=== PATIENT | male | born 1955 | race Two or more races ===

== ENCOUNTER 2017-01-26 13:16 | Emergency (ER) | payer OTHER ==
[~2017-01-26] VITALS: Ht 165.1 cm; Wt 72.6 kg
[2017-01-26] MEDS ORDERED: IV NS 0.9% 1,000 ML BAG IV ONE (13:30)
[2017-01-26] MEDS ORDERED: ONDANSETRON HCL/PF 4 MG/2 ML VIAL IVP ONE (13:30)
[2017-01-26] MEDS ORDERED: MORPHINE SULFATE INJ 2 MG/ML DISP.SYRIN IV ONE (13:30)
[2017-01-26 13:43] LABS: BASOPHILS # (AUTO) 0.1 /CMM (0.0-0.2); BASOPHILS % (AUTO) 0.7 % (0.0-2.0); EOSINOPHILS # (AUTO) 0.1 /CMM (0.0-0.7); EOSINOPHILS % (AUTO) 1.1 % (0.0-6.0); HEMATOCRIT 47 % (39-51); HEMOGLOBIN 16.1 g/dL (13.5-17.5); LYMPHOCYTES # (AUTO) 3.4 /CMM (0.8-4.8); MEAN CORPUSCULAR HEMOGLOBIN 31 PG (26.0-33.0); MEAN CORPUSCULAR HGB CONC 34 g/dl (31.0-36.0); MEAN CORPUSCULAR VOLUME 91 fL (80-96); MONOCYTES # (AUTO) 0.6 /CMM (0.1-1.30); MONOCYTES % (AUTO) 5.7 % (2.0-12.0); NEUTROPHILS % (AUTO) 59.5 % (43.0-81.0); PLATELET COUNT (AUTO) 269 /CMM (150-450); RDW COEFFICIENT OF VARIATION 13.3 (11.5-15.0); RED BLOOD CELL COUNT(AUTO) 5.13 MIL/uL (4.5-6.0); WHITE BLOOD COUNT (AUTO) 10.2 K/uL (4.3-11.0)
--- NOTE | 2017-01-26 13:48 | NUR ---
PT TAKEN TO CT
[2017-01-26] MEDS ORDERED: MORPHINE SULFATE INJ 4 MG/ML DISP.SYRIN ONE (13:50)
[2017-01-26] MEDS ORDERED: IV NS 0.9% 1,000 ML ONE (13:50)
[2017-01-26] MEDS ORDERED: ONDANSETRON HCL/PF 4 MG/2 ML VIAL ONE (13:50)
[2017-01-26] MEDS ORDERED: IV SET PRIMARY PUMP SET 1 EA INFUS.SET MC ONE (13:50)
[2017-01-26 13:52] LABS: CALCIUM, SERUM 8.9 mg/dL (8.5-10.1); CREATININE 1.2 mg/dL (0.6-1.3); POTASSIUM 3.3 mmol/L (3.5-5.1)
[2017-01-26 13:58] LABS: ALBUMIN 4.2 g/dL (3.4-5.0); BILIRUBIN,DIRECT 0.1 mg/dL (0.0-0.2); BILIRUBIN,TOTAL 0.3 mg/dL (0.2-1.0); TOTAL PROTEIN, SERUM 8.6 g/dL (6.4-8.2)
[2017-01-26 15:05] LABS: APPEARANCE,URINE Clear (CLEAR); BILIRUBIN,URINE Negative (NEGATIVE); BLOOD, URINE Negative Ery/uL (NEGATIVE); COLOR,URINE Yellow (YELLOW); KETONES,URINE Negative (NEGATIVE); LEUKOCYTE ESTERASE ,URINE Negative (NEGATIVE); NITRITE, URINE Negative (NEGATIVE); PROTEIN,URINE Negative (NEGATIVE); UGLUCOSE Negative (NEGATIVE); UROBILINOGEN,URINE 0.2 EU/dL (0.2)
--- NOTE | 2017-01-26 15:39 | NUR ---
IV removed. Catheter intact and site benign. Pressure and 4x4 applied to site. No bleeding noted.Patient discharged to home in stable condition. Written and verbal after care instructions given. Patient verbalizes understanding of instruction.
[2017-01-26 15:40] VITALS: BP 140/80
== END 2017-01-26 15:41 | disposition home or self-care (01) ==
LOC: ER 13:18
DX: R10.84 Generalized abdominal pain (principal); M54.9 Dorsalgia, unspecified; G89.29 Other chronic pain
CPT/HCPCS: 36415; 80048-TC; 80076-TC; 81000-TC; 83690-TC; 84484-TC; 85025-TC; A4606; J2270; J2405; J7030; Z7610

== ENCOUNTER 2017-02-12 19:41 | Inpatient (IN) | payer OTHER ==
[~2017-02-12] VITALS: Ht 162.6 cm; Wt 71.7 kg
--- NOTE | 2017-02-12 20:00 | NUR ---
PT PRESENTED TO THE ER WITH A C/O N/V AND GENERALIZED ABD PAIN. EPIGASTRIC PAIN WITH PALPATION. PT IS SYRIAC SPEAKING ONLY. PT IS GUARDING HIS STOMACH, DIAPHORETIC, AND MOANING. PT STATED PAIN IS 10/10. PT IS ON THE MONITOR AND CONTINOUS PULSE OX.
[2017-02-12] MEDS ORDERED: IV NS 0.9% 1,000 ML ONE ×2 (20:04→21:39)
[2017-02-12] MEDS ORDERED: IV SET PRIMARY 1 EA INFUS.SET MC ONE ×2 (20:04→21:39)
[2017-02-12] MEDS ORDERED: ONDANSETRON HCL/PF 4 MG/2 ML VIAL ONE (20:04)
[2017-02-12] MEDS ORDERED: MORPHINE SULFATE INJ 4 MG/ML DISP.SYRIN ONE (20:04)
[2017-02-12 20:09] LABS: BASOPHILS # (AUTO) 0.1 /CMM (0.0-0.2); BASOPHILS % (AUTO) 0.4 % (0.0-2.0); EOSINOPHILS # (AUTO) 0.1 /CMM (0.0-0.7); EOSINOPHILS % (AUTO) 1.1 % (0.0-6.0); HEMATOCRIT 45 % (39-51); LYMPHOCYTES # (AUTO) 3.4 /CMM (0.8-4.8); LYMPHOCYTES % (AUTO) 27.1 % (20.0-44.0); MEAN CORPUSCULAR HEMOGLOBIN 31 PG (26.0-33.0); MEAN CORPUSCULAR HGB CONC 34 g/dl (31.0-36.0); MEAN CORPUSCULAR VOLUME 91 fL (80-96); MONOCYTES # (AUTO) 1.1 /CMM (0.1-1.30); MONOCYTES % (AUTO) 8.4 % (2.0-12.0); PLATELET COUNT (AUTO) 272 /CMM (150-450); RDW COEFFICIENT OF VARIATION 13.6 (11.5-15.0); RED BLOOD CELL COUNT(AUTO) 4.92 MIL/uL (4.5-6.0); WHITE BLOOD COUNT (AUTO) 12.7 K/uL (4.3-11.0)
[2017-02-12 20:19] LABS: CALCIUM, SERUM 8.8 mg/dL (8.5-10.1); CREATININE 1.1 mg/dL (0.6-1.3); POTASSIUM 3.6 mmol/L (3.5-5.1)
--- NOTE | 2017-02-12 20:19 | NUR ---
PT LEFT FOR CT VIA RNEY
[2017-02-12 20:23] LABS: INR 0.95 (0.87-1.13); PROTHROMBIN TIME 9.9 SECS (9.5-12.7)
[2017-02-12 20:26] LABS: ALBUMIN 3.8 g/dL (3.4-5.0); BILIRUBIN,DIRECT 1.7 mg/dL (0.0-0.2); BILIRUBIN,TOTAL 2.3 mg/dL (0.2-1.0); TOTAL PROTEIN, SERUM 7.9 g/dL (6.4-8.2)
[2017-02-12] MEDS ORDERED: ONDANSETRON HCL/PF 4 MG/2 ML VIAL IV ONE (20:30)
[2017-02-12] MEDS ORDERED: MORPHINE SULFATE INJ 2 MG/ML DISP.SYRIN IV ONE (20:30)
[2017-02-12] MEDS ORDERED: IV NS 0.9% 1,000 ML BAG IV ONE ×2 (20:30→21:30)
[2017-02-12] MEDS ORDERED: HYDROMORPHONE 1 MG/1 ML DISP.SYRIN ONE (20:37)
[2017-02-12] MEDS ORDERED: HYDROMORPHONE 1 MG/1 ML DISP.SYRIN IV ONE (21:00)
--- NOTE | 2017-02-12 21:11 | NUR ---
WILIAM PAGED, ROC[employer]O WEBSTER STRUCTURAL MILL SUPERVISOR, PAGED TO CALL BACK
--- NOTE | 2017-02-12 21:17 | NUR ---
CALLED NURSING SUP. FOR MS BED
[2017-02-12] MEDS ORDERED: MEROPENEM 500 MG in IV NS 0.9% 50 ML IV ONE (21:30)
[2017-02-12] MEDS ORDERED: MEROPENEM 500 MG VIAL IV ONE (21:39)
[2017-02-12] MEDS ORDERED: IV NS 0.9% 50 ML IV ONE (21:39)
--- NOTE | 2017-02-12 21:58 | NUR ---
CALLED REPORT TO MS ROD
[2017-02-12 22:00] VITALS: BP 136/79
--- NOTE | 2017-02-12 22:15 | NUR ---
MS/RN NOTES PATIENT RECEIVED FORM ER IS A 61 Y.O /TRISTANIAN SPEAKING MALE WHO WAS ADMITTED FOR ABDOMINAL PAIN W/DIAGNOSIS OF PANCREATITIS. PATIENT W/ HISTORY OF CHRONIC BACK PAIN AND WAS RECENTLY ADMITTED DUE TO ABDOMINAL PAIN. ALERT, ORIENTED, CAN SPEAK LITTLE HUNGARIAN BUT PREFER TO SPEAK IN TRISTANIAN, REQUIRE ASSISTANCE BUT CONTINENT AND USES URIINAL, ON NPO WITH IV ON RIGHT AC G18 . B/P 136/79, P 83, TEMP 98 AND ON 2 LITER VIA NC 95%. RECONCILE MEDS. WILL FOLLOW UP FOR ANY CHANGE IN CONDITION . PATIENT REFUSED TO HAVE SKIN CHECK AT THIS TIME.
[2017-02-12] MEDS ORDERED: TRAM50TA2 PO (22:20)
--- NOTE | 2017-02-12 23:00 | NUR ---
MS/RN NOTES BELONGINGS CHECKED. HOME MEDICATION FOUIND ON PATIENT BELONGING, INFORMED CHARGE NURSE FOR SAFE STORAGE. TO ENDORSE
[2017-02-12] MEDS ORDERED: IV NS 0.9% 1,000 ML IV PRN (23:05)
[2017-02-12 23:18] VITALS: BP 136/79
[2017-02-12] MEDS ORDERED: HYDROCODONE/APAP 5/325MG 1 EACH TABLET PO PRN (23:30)
[2017-02-12] MEDS ORDERED: ZOLPIDEM TARTRATE 5 MG TABLET PO PRN (23:30)
[2017-02-12] MEDS ORDERED: Z GUARD REMEDY 2 OZ OINT TP PRN (23:30)
[2017-02-12] MEDS ORDERED: MAG HYDROX/AL HYDROX/SIMETH 30 ML UDC PO PRN (23:30)
[2017-02-12] MEDS ORDERED: ACETAMINOPHEN 325 MG TABLET PO PRN (23:30)
[2017-02-12] MEDS ORDERED: MAGNESIUM HYDROXIDE 30 ML UDC PO PRN (23:30)
[2017-02-12] MEDS ORDERED: ONDANSETRON HCL/PF 4 MG/2 ML VIAL IVP PRN (23:30)
[2017-02-12] MEDS ORDERED: MEROPENEM 500 MG in IV NS 0.9% 50 ML IV SCH (23:30)
[2017-02-13] MEDS ORDERED: HYDROMORPHONE INJ 2 MG/ML DISP.SYRIN ONE ×2 (00:34→05:41)
[2017-02-13] MEDS: HYDROMORPHONE INJ 2 MG/ML DISP.SYRIN IV PRN ×6 (00:41→23:37)
[2017-02-13] MEDS ORDERED: MEROPENEM 500 MG VIAL IV ONE (00:55)
[2017-02-13] MEDS ORDERED: IV NS 0.9% 1,000 ML ONE (01:12)
[2017-02-13] MEDS ORDERED: IV SET PRIMARY PUMP SET 1 EA INFUS.SET MC ONE ×2 (01:12→15:41)
[2017-02-13] MEDS ORDERED: IV NS 0.9% 50 ML IV ONE (01:13)
[2017-02-13] MEDS ORDERED: SECONDARY IV SET 1 EA INFUS.SET MC ONE ×2 (01:13→13:01)
--- NOTE | 2017-02-13 03:10 | NUR ---
MS/RN NOTES PATIENT REPORTED CHEST PAIN OF 01/21. B/P TAKEN 152/88, PULSW88, O2 SAT WITH 2L VIA NC AT 97% TEMP AT 97.6. REPORTED TO CHARGE NURSE AND TO OBSERVE TELE MONITOR AT SR 82. ORDER FOR SUBLINGUAL NITRO04 ONE TIME ONLY AND EKG AND TROPONIN LEVEL.. WILL CARRY OUT ORDER.
[2017-02-13] MEDS ORDERED: NITROGLYCERIN 0.4 MG/TAB BOTTLE ONE (03:22)
[2017-02-13] MEDS ORDERED: NITROGLYCERIN 0.4 MG/TAB BOTTLE SL ONE (03:30)
--- NOTE | 2017-02-13 03:38 | NUR ---
MS/RN NOTES PATIENT EKG DONE WITH NORMAL SINUS RHYTHM. PATIENT GIVEN NITRO SUB LINGUAL 0330 WITH PAIN LEVEL CHEST 5/10, RECEHCK PAIN AT 0335 AND CHEST PAIN STILL AT 5/10 AFTER GIVING 2ND VINITA SL B/P AT 147/88 O2 SAT 94%. RECEHECK PAIN AND GIVE LAST DOSE NIRO SL AND CHECK CHEST PAIN LEVEL.
--- NOTE | 2017-02-13 03:57 | NUR ---
MS/RN NOTES PATIENT REPORTED PAIN 4/10 AND LESS DISCOMFORT
[2017-02-13 04:49] VITALS: BP_SYST 125; BP_SYST 152; BP_DIAS 77; BP_DIAS 88
--- NOTE | 2017-02-13 05:52 | NUR ---
MS/RN NOTES PATIENT REPORTED SEVERE PAIN 9/10 IN ABDOMEN WILL PROVIDE MEDICATION DILAUDID IM IV AND MONITOR PAIN EFFECTIVENESS.
[2017-02-13 06:42] LABS: EOSINOPHILS # (AUTO) 0.1 /CMM (0.0-0.7); EOSINOPHILS % (AUTO) 0.5 % (0.0-6.0); HEMATOCRIT 40 % (39-51); HEMOGLOBIN 13.1 g/dL (13.5-17.5); LYMPHOCYTES # (AUTO) 0.5 /CMM (0.8-4.8); LYMPHOCYTES % (AUTO) 4.5 % (20.0-44.0); MEAN CORPUSCULAR HEMOGLOBIN 30 PG (26.0-33.0); MEAN CORPUSCULAR HGB CONC 33 g/dl (31.0-36.0); MEAN CORPUSCULAR VOLUME 92 fL (80-96); MONOCYTES # (AUTO) 0.5 /CMM (0.1-1.30); MONOCYTES % (AUTO) 4.3 % (2.0-12.0); NEUTROPHILS # (AUTO) 10.8 /CMM (1.8-8.9); NEUTROPHILS % (AUTO) 90.7 % (43.0-81.0); PLATELET COUNT (AUTO) 243 /CMM (150-450); RDW COEFFICIENT OF VARIATION 14.5 (11.5-15.0); RED BLOOD CELL COUNT(AUTO) 4.33 MIL/uL (4.5-6.0); WHITE BLOOD COUNT (AUTO) 11.9 K/uL (4.3-11.0)
--- NOTE | 2017-02-13 06:50 | NUR ---
MS/RN NOTES PATIENT ABLE TO SLEEP AND VERBALIZED PAIN RELIEF. CALM AND WILL CONTINUE TO MONITOR AND ENDORSE TO AM RN.
[2017-02-13 07:13] LABS: ALBUMIN 3.2 g/dL (3.4-5.0); BILIRUBIN,TOTAL 2.7 mg/dL (0.2-1.0); CALCIUM, SERUM 7.5 mg/dL (8.5-10.1); CREATININE 0.9 mg/dL (0.6-1.3); MAGNESIUM 1.7 mg/dL (1.8-2.4); PHOSPHORUS 4.1 mg/dL (2.5-4.9); TOTAL PROTEIN, SERUM 6.7 g/dL (6.4-8.2)
[2017-02-13 07:14] VITALS: BP 130/83
[2017-02-13 07:16] LABS: FREE PSA 0.63 ng/mL (0.00-45); PROSTATE SPECIFIC ANTIGEN SCR 4.71 ng/mL (0.00-4.00)
--- NOTE | 2017-02-13 07:50 | NUR ---
MS RN OPENING NOTE PATIENT IS ASLEEP IN BED LOCKED IN LOWEST POSITION. CALL LIGHT WITHIN REACH. SAFETY MEASURES IMPLEMENTED. IV INTACT AND PATENT NO REDNESS OR SWELLING NOTED. NO PAIN AT THIS TIME. NO SOB OR DISTRESS NOTED. CURRENTLY NPO AT THIS TIME. WILL CONTINUE TO MONTIOR
[2017-02-13 08:00] VITALS: BP 147/84
[2017-02-13 08:57] LABS: THYROID STIMULATING HORMONE 0.41 uIU/mL (0.358-3.74)
[2017-02-13] MEDS: PANTOPRAZOLE 40 MG VIAL IV SCH (09:22)
[2017-02-13] MEDS: MEROPENEM 500 MG in IV NS 0.9% 50 ML IV SCH ×2 (12:00→21:31)
[2017-02-13] MEDS: Magnesium 1GM/D5W 100ML PREMIX 100 ML IV SCH ×2 (13:13→15:21)
--- NOTE | 2017-02-13 15:02 | NUR ---
MS RN NOTE PATIENT IS TO HAVE GI CONSULT WITH DR. RODRIGES PER DR. DA SILVA REQUEST. PAGED GI DOCTOR TO MAKE AWARE
[2017-02-13 16:00] VITALS: BP 141/83
[2017-02-13] MEDS: IV D5/ 0.9% NACL 1,000 ML IV PRN ×2 (16:25→23:43)
--- NOTE | 2017-02-13 18:25 | NUR ---
MS RN CLOSING NOTE PATIENT IS ALERT AND ORIENTED x4. NO PAIN AT THIS TIME. NO SOB OR DISTRESS NOTED. IV INTACT AND PATENT NO REDNESS OR SWELLING. CALL LIGHT WITHIN REACH AT ALL TIMES. SAFETY MEASURES IMPLEMENTED. ABLE TO COMMUNICATE NEEDS. [place] SPEAKING. WAITING FOR GI CONSULT BY DR. ZAHIRA MD AWARE. ON CLEAR LIQUIDS, TOLERATING WELL. WILL ENDORSE TO BUNDLE CUTTER NURSE FOR NAMITA
--- NOTE | 2017-02-13 19:00 | NUR ---
MS PHOTOGRAPHER APPRENTICE LITHOGRAPHIC INITIAL NOTES CHECKED PT AFTER GOT REPORT FROM NURSE , COMPLAINING OF ABDOMINAL PAIN BUT NO N/V NOTED. IVF STILL INFUSING ON HIS RIGHT AC D5NS AT 150ML/HR . DILAUDID ADMINISTERED BY AM NURSE FRO PT COMFORT. KEPT HIM WARM AND COMFORTABLE AT ALL TIMES . SAFETY PRECAUTION IMPLEMENTED FOR SAFETY.WILL CONTINUE TO MONITOR. PLACE CALL LIGHT AT REACH.
[2017-02-13 20:00] VITALS: BP 130/68
--- NOTE | 2017-02-13 22:10 | NUR ---
DERMATOLOGY NURSE /NOTES PT WOKE UP AND COMPLAINING OF ABDOMINAL PAIN BUT PAIN SHOT NOT DUE YET, OFFERED MAALOX AND HE SAID "OK". DRINK IT AND TOLERATED WELL . NO ASPIRATION NOTED. WILL CONTINUE TO MONITOR.
[2017-02-14] MEDS: MEROPENEM 500 MG in IV NS 0.9% 50 ML IV SCH ×3 (05:17→21:00)
[2017-02-14] MEDS: HYDROMORPHONE INJ 2 MG/ML DISP.SYRIN IV PRN ×4 (05:19→22:17)
--- NOTE | 2017-02-14 05:20 | NUR ---
RN NOTES: DILAUDID 1 MG IV IS GIVEN PRESCRIBED.
--- NOTE | 2017-02-14 07:04 | NUR ---
MS SPORTS MEDICINE MASSEUR CLOSING NOTES PT RESTING COMFORTABLY IN BED AFTER PAIN MEDS GIVEN. IVF STILL INFUSING ON HIS RIGHT AC PATENT AND INTACT. ALL DUE MEDS GIVEN AND ALL NEEDS MET. PAIN NOTICED ON AND OFF BUT NO N/V NOTED. KEPT HIM COMFORTABLE AT ALL TIMES. WILL ENDORSE TO AM NURSE FOR CONTINUITY OF CARE. PLACE CALL LIGHT AT REACH.
[2017-02-14 07:27] LABS: ALBUMIN 2.7 g/dL (3.4-5.0); BILIRUBIN,DIRECT 2.2 mg/dL (0.0-0.2); BILIRUBIN,TOTAL 3.4 mg/dL (0.2-1.0); CALCIUM, SERUM 7.6 mg/dL (8.5-10.1); CREATININE 0.8 mg/dL (0.6-1.3); MAGNESIUM 2.1 mg/dL (1.8-2.4); POTASSIUM 3.7 mmol/L (3.5-5.1); TOTAL PROTEIN, SERUM 6.5 g/dL (6.4-8.2)
--- NOTE | 2017-02-14 07:48 | NUR ---
MS RN OPENING NOTE PATIENT IS ASLEEP IN BED EASILY AROUSABLE. NO PAIN AT THIS TIME. NO SOB OR DISTRESS NOTED. IV INTACT AND PATENT NO REDNESS OR SWELLING. ABLE TO COMMUNICATE NEEDS. CALL LIGHT WITHIN REACH. SAFETY MEASURES IMPLEMENTED. AWAITING FOR GI CONSULT. WILL ENDORSE TO GYROSCOPE TECHNICIAN Addendum: 02/14/17 at 0753 by BREANNA BLACKWOOD RN WILL CONTINUE TO MONITOR
[2017-02-14 08:00] VITALS: BP 147/69
[2017-02-14] MEDS: PANTOPRAZOLE 40 MG VIAL IV SCH (08:28)
--- NOTE | 2017-02-14 12:26 | NUR ---
MS RN NOTE OBTAINED INFORMED CONSENT FOR ERCP PROCEDURE. WILL ENDORSE TO SOFTWARE QUALITY ASSURANCE ANALYST NURSE
[2017-02-14 16:00] VITALS: BP 136/71
--- NOTE | 2017-02-14 18:43 | NUR ---
MS RN CLOSING NOTE PATIENT IS AWAKE IN BED. CALL LIGHT WITHIN REACH AT ALL TIMES. ABLE TO COMMUNICATE NEEDS. SAFETY MEASURES IMPLEMENTED. IV INTACT AND PATENT. NO SIGNIFICANT CHANGES THROUGHOUT SHIFT. INFORMED CONSENT OBTAINED FOR ERCP PROCEDURE TOMORROW. NPO AFTER MIDNIGHT EXCEPT MEDICATIONS. WILL ENDORSE TO SIDE LASTER STAPLE NURSE
[2017-02-14 20:00] VITALS: BP 149/79
--- NOTE | 2017-02-14 20:00 | NUR ---
MS MARY INITIAL NOTES SEEN PT IN BED AWAKE AND ALERT WATCHING TV AT THIS TIME NOT IN ANY ACUTE DISCOMFORT HE STATED ONLY FEEL HOT THE ROOM , REGULATE THE TEMP FOR PT COMFORT. IVF STILL INFUSING, NEW BAG HUNG AT THIS TIME. PT AWARE OF HIS PROCEDURE [place]. NPO AFTER MIDNIGHT EXCEPT MEDS. KEPT HIM WARM AND COMFORTABLE AT ALL TIMES. WILL CONTINUE TO MONITOR. PLACE CALL LIGHT AT REACH.
[2017-02-14] MEDS: IV D5/ 0.9% NACL 1,000 ML IV PRN (20:30)
[2017-02-14 20:44] VITALS: BP 146/79
[2017-02-14] MEDS ORDERED: LATANOPROST EYE DROP 0.005% 2.5 ML BOTTLE ONE (21:54)
--- NOTE | 2017-02-14 22:25 | NUR ---
ms/rn notes Patient complained of Abdominal pain. 8/10 level of pain. Medicated with Dilaudid 1 mg ivp as ordered. Will cont. to monitor.
[2017-02-15] VITALS (9 sets, daily range): BP systolic 93–136; BP diastolic 59–77
[2017-02-15] MEDS: HYDROMORPHONE INJ 2 MG/ML DISP.SYRIN IV PRN ×2 (03:29→08:43)
--- NOTE | 2017-02-15 03:31 | NUR ---
ms/rn notes Patient complained of Abdominal pain. 910 level of pain. Medicated with Dilaudid 1 mg ivp as ordered. Will cont. to monitor.
[2017-02-15] MEDS: IV D5/ 0.9% NACL 1,000 ML IV PRN ×2 (05:30→14:48)
[2017-02-15] MEDS: MEROPENEM 500 MG in IV NS 0.9% 50 ML IV SCH (06:15)
--- NOTE | 2017-02-15 07:29 | NUR ---
MS SPLICING MACHINE OPERATOR AUTOMATIC CLOSING NOTES PT RESTING COMFORTABLY IN BED WITHOUT ANY ACUTE DISTRESS AND DISCOMFORT NOTED. IVF REMAIN INFUSING. ALL DUE MEDS GIVEN AND ALL NEEDS MET. STABLE EMILEE THE NIGHT EXCEPT THE PAIN BUT RELIEVED BY HIS DILAUDID. KEPT HIM COMFORTABLE AT ALL TIMES. ENDORSE TO AM NURSE VASQUEZ FOR CONTINUITY OF CARE. PLACE CALL LIGHT AT REACH.
--- NOTE | 2017-02-15 07:30 | NUR ---
m/s braille translator: initial assessment received pt in bed asleep, but arousable. npo status due to ercp and medical diagnosis. no s/s of discomfort. call light within reach. will continue to monitor.
[2017-02-15 07:34] LABS: EOSINOPHILS % (AUTO) 0.1 % (0.0-6.0); HEMATOCRIT 39 % (39-51); HEMOGLOBIN 12.9 g/dL (13.5-17.5); LYMPHOCYTES # (AUTO) 1.3 /CMM (0.8-4.8); MEAN CORPUSCULAR HEMOGLOBIN 31 PG (26.0-33.0); MEAN CORPUSCULAR HGB CONC 33 g/dl (31.0-36.0); MEAN CORPUSCULAR VOLUME 91 fL (80-96); MONOCYTES # (AUTO) 0.8 /CMM (0.1-1.30); MONOCYTES % (AUTO) 4.9 % (2.0-12.0); NEUTROPHILS # (AUTO) 14.1 /CMM (1.8-8.9); PLATELET COUNT (AUTO) 218 /CMM (150-450); RDW COEFFICIENT OF VARIATION 14.4 (11.5-15.0); RED BLOOD CELL COUNT(AUTO) 4.25 MIL/uL (4.5-6.0); WHITE BLOOD COUNT (AUTO) 16.3 K/uL (4.3-11.0)
[2017-02-15 08:02] LABS: CALCIUM, SERUM 7.8 mg/dL (8.5-10.1); CREATININE 0.8 mg/dL (0.6-1.3); POTASSIUM 3.6 mmol/L (3.5-5.1)
[2017-02-15] MEDS: PANTOPRAZOLE 40 MG VIAL IV SCH (08:29)
--- NOTE | 2017-02-15 08:43 | NUR ---
m/s drafter topographical: notes c/o 04/22 left lower abdomen. medicated with dilaudid 1mg ivp by rn. instructed to call for assistance. remains npo. will continue to monitor.
--- NOTE | 2017-02-15 09:13 | NUR ---
m/s principal strategist: notes pt in bed with eyes close. no s/s of resp. distress noted. call light within reach. will monitor.
--- NOTE | 2017-02-15 11:00 | NUR ---
m/s electric switch repairer: notes pt resting comfortable. remains npo. continue on ivf, infusing well. for ercp this afternoon. family visiting at this time. instructed to call for assistance. will monitor.
--- NOTE | 2017-02-15 12:00 | NUR ---
m/s hand i tube bender: notes resting comfortable in bed. 3 visitors at bedside. call light within reach. will monitor.
[2017-02-15] MEDS ORDERED: IOHEXOL 100 ML IV ONE (12:22)
--- NOTE | 2017-02-15 12:30 | NUR ---
m/s senior db2 systems programmer: notes taken to o.r. via bed at this time. son at bedside. will continue to monitor.
[2017-02-15] MEDS ORDERED: FENTANYL PF 100MCG/2ML AMPUL ONE (13:02)
[2017-02-15] MEDS ORDERED: ROCURONIUM BROMIDE 50 MG/5 ML ONE (13:03)
[2017-02-15] MEDS ORDERED: MIDAZOLAM HCL 2 MG/2ML VIAL ONE (13:03)
[2017-02-15] MEDS ORDERED: SUCCINYLCHOLINE CHLORIDE 20 MG/ML VIAL ONE (13:03)
--- NOTE | 2017-02-15 14:40 | NUR ---
m/s tv news director: notes received pt from recovery room via bed with dx: s/p ercp. pt dozing on and off at this time, but verbally responsive. denies any pain or n/v at this time. ordered soft diet and may advance diet as tolerated. report given by greyson (rn) and stones was removed as stated. son at bedside. instructed to call for assistance. will continue to monitor.
[2017-02-15] MEDS: MEROPENEM 1 G in IV NS 0.9% 100 ML IV SCH ×2 (14:54→21:20)
--- NOTE | 2017-02-15 15:40 | NUR ---
m/s chucking and sawing machine operator: notes pt sounds asleep at this time. son at remains at bedside. call light within reach. will continue to monitor.
--- NOTE | 2017-02-15 17:20 | NUR ---
m/s cloth bolt bander: notes dinner served. pt more awake, but still sleepy. needs attended. no c/o pain, n/v at this time. instructed to call for assistance. in no apparent distress noted. will continue to monitor.
--- NOTE | 2017-02-15 19:05 | NUR ---
RN NOTE RECEIVED REPORT. NO DISTRESS NOTED, DENIES PAIN/DISCOMFORT AT THIS TIME. HYPOACTIVE BOWEL SOUNDS AUSCULTATED IN EACH QUADRANT. ENCOURAGED PT TO AMBULATE. CALL LIGHT IN REACH, IV INTACT AND PATENT. WILL CONT TO MONITOR.
[2017-02-16] MEDS: MEROPENEM 1 G in IV NS 0.9% 100 ML IV SCH ×3 (04:04→21:08)
--- NOTE | 2017-02-16 06:25 | NUR ---
RN NOTE PT SLEPT WELL AT NIGHT. NO C/O PAIN OR DISCOMFORT AT THIS TIME. BREATHING NON-LABORED AND EVEN. IV INTACT AND PATENT. ALL NEEDS ATTENDED TO, WILL F/U WITH DAY SHIFT FOR NAMITA.
--- NOTE | 2017-02-16 07:15 | NUR ---
RN MS NOTES PATIENT IN BED ALERT AND ORIENTED, NO COMPLAINT OF PAIN OR DISCOMFORT, NEEDS ATTENDED AND MET, SAFETY MEASURES IN PLACED, CALL LIGHT PLACED WITHIN REACH REACH, WILL CONTINUE TO MONITOR.
[2017-02-16 07:39] LABS: HEMATOCRIT 39 % (39-51); LYMPHOCYTES # (AUTO) 0.9 /CMM (0.8-4.8); LYMPHOCYTES % (AUTO) 6.7 % (20.0-44.0); MEAN CORPUSCULAR HEMOGLOBIN 31 PG (26.0-33.0); MEAN CORPUSCULAR HGB CONC 34 g/dl (31.0-36.0); MEAN CORPUSCULAR VOLUME 91 fL (80-96); MONOCYTES # (AUTO) 0.7 /CMM (0.1-1.30); NEUTROPHILS # (AUTO) 12.2 /CMM (1.8-8.9); NEUTROPHILS % (AUTO) 88.3 % (43.0-81.0); PLATELET COUNT (AUTO) 265 /CMM (150-450); RDW COEFFICIENT OF VARIATION 14.7 (11.5-15.0); RED BLOOD CELL COUNT(AUTO) 4.24 MIL/uL (4.5-6.0); WHITE BLOOD COUNT (AUTO) 13.8 K/uL (4.3-11.0)
[2017-02-16 07:56] LABS: CALCIUM, SERUM 8.2 mg/dL (8.5-10.1); CREATININE 0.8 mg/dL (0.6-1.3); POTASSIUM 3.7 mmol/L (3.5-5.1)
[2017-02-16 08:00] VITALS: BP 121/69
[2017-02-16] MEDS: PANTOPRAZOLE 40 MG VIAL IV SCH (09:28)
[2017-02-16 15:45] VITALS: BP 148/110
--- NOTE | 2017-02-16 16:48 | NUR ---
RN MS NOTES PATIENT AMBULATES ON THE HALLWAY WITH STEADY GAIT, NO COMPLAINT OF PAIN AT THIS TIME. WILL CONTINUE TO MONITOR.
[2017-02-16] MEDS: IV D5/ 0.9% NACL 1,000 ML IV PRN (16:56)
--- NOTE | 2017-02-16 18:35 | NUR ---
RN MS NOTES PATIENT WITH NO SIGNIFICANT CHANGE THIS SHIFT, NO DISTRESS NOTED, DENIES PAIN AT THIS TIME, SEEN BY DR. ROMO THIS MORNING, STATED TO CONTINUE CURRENT MANAGEMENT, FAMILY AND FRIENDS AT BEDSIDE FOR SUPPORT, PIV ON RIGHT HAND NEWLY INSERTED, PATENT AND INTACT, AMBULATES TO RESTROOM, SAFETY MEASURES IN PLACED, CALL LIGHT WITHIN REACH, WILL ENDORSE TO DIRECTOR OF MARKETING AND PROMOTIONS FOR NAMITA.
--- NOTE | 2017-02-16 19:00 | NUR ---
MS RN OPENING NOTES RECEIVED PATIENT IN BED, AWAKE/O X 4, IV SITE INTACT WITH NO S/S OF INFILTRATION NOTED. NO S/S OF BLEEDING NOTED. NO S/S OF DISTRESS, NO CHEST PAIN IN STABLE CONDITION. KEPT CLEAN DRY AND COMFORTABLE. SAFE HAZARD FREE ENVIRONMENT PROVIDED. WILL CONTINUE TO MONITOR PATIENT.
[2017-02-16 20:00] VITALS: BP 148/84
[2017-02-16 20:56] VITALS: BP 148/84
[2017-02-17] MEDS: MEROPENEM 1 G in IV NS 0.9% 100 ML IV SCH (05:01)
[2017-02-17] MEDS: IV D5/ 0.9% NACL 1,000 ML IV PRN (05:01)
--- NOTE | 2017-02-17 06:33 | NUR ---
MS RN CLOSING NOTES IN BED ASLEEP AND EASILY AWAKEN, SEMI FOWLERS POSITION, ON ATB WITH NO A/R NOTED. SKIN WARM AND DRY TO TOUCH, AFEBRILE, ON IV D5 NS AT @ 100 ML/HR TOLERATED WELL. ALL NURSING CARE NEEDS PROVIDED AND RENDERED, NEEDS ATTENDED AND ANTICIPATED, KEPT CLEAN AND DRY AND COMFORTABLE, BLADDER NOT DISTENDED, CONTINUE WITH CURRENT MEDICATION ORDERED, NO LATE ADVERSE REACTION NOTED/REPORTED. COOPERATIVE TO HIS PLAN OF CARE. SAFE HAZARD FREE ENVIRONMENT MAINTAINED. ASSISTED REPOSITIONED EVERY 2 HOURS FOR SKIN MANAGEMENT AND COMFORT. GOOD SKIN CARE PROVIDED. ALL DUE MEDS WAS GIVEN. KEPT AT LOW BED. FREQUENT VISUAL CHECK FOR SAFETY. PLAN OF CARE ORDERED. CALL LIGHT ATTENDED PROMPTLY AND KEPT AT EASY REACH. WILL ENDORSE TO THE NEXT SHIFT CONTINUE PLAN OF CARE.
[2017-02-17 06:54] LABS: BASOPHILS % (AUTO) 0.1 % (0.0-2.0); EOSINOPHILS # (AUTO) 0.1 /CMM (0.0-0.7); EOSINOPHILS % (AUTO) 0.5 % (0.0-6.0); HEMATOCRIT 39 % (39-51); HEMOGLOBIN 12.9 g/dL (13.5-17.5); LYMPHOCYTES # (AUTO) 1.6 /CMM (0.8-4.8); LYMPHOCYTES % (AUTO) 11.5 % (20.0-44.0); MEAN CORPUSCULAR HEMOGLOBIN 30 PG (26.0-33.0); MEAN CORPUSCULAR HGB CONC 33 g/dl (31.0-36.0); MEAN CORPUSCULAR VOLUME 91 fL (80-96); MONOCYTES # (AUTO) 1.1 /CMM (0.1-1.30); MONOCYTES % (AUTO) 8.2 % (2.0-12.0); NEUTROPHILS # (AUTO) 10.9 /CMM (1.8-8.9); NEUTROPHILS % (AUTO) 79.7 % (43.0-81.0); PLATELET COUNT (AUTO) 280 /CMM (150-450); RDW COEFFICIENT OF VARIATION 14.2 (11.5-15.0); RED BLOOD CELL COUNT(AUTO) 4.29 MIL/uL (4.5-6.0); WHITE BLOOD COUNT (AUTO) 13.7 K/uL (4.3-11.0)
--- NOTE | 2017-02-17 07:10 | NUR ---
RN MS NOTES PATIENT IN BED, ALERT AND ORIENTED, DENIES PAIN OR DISCOMFORT, NO S/SX OF DISTRESS, NEEDS ATTENDED, WILL CONTINUE TO MONITOR.
[2017-02-17 07:19] LABS: ALBUMIN 2.3 g/dL (3.4-5.0); BILIRUBIN,TOTAL 0.8 mg/dL (0.2-1.0); CALCIUM, SERUM 7.4 mg/dL (8.5-10.1); CREATININE 0.9 mg/dL (0.6-1.3); POTASSIUM 3.2 mmol/L (3.5-5.1); TOTAL PROTEIN, SERUM 6.4 g/dL (6.4-8.2)
[2017-02-17 08:00] VITALS: BP 123/75
[2017-02-17] MEDS: PANTOPRAZOLE 40 MG VIAL IV SCH (09:20)
--- NOTE | 2017-02-17 11:15 | NUR ---
RN MS NOTES PATIENT RECEIVED DISCHARGE INSTRUCTIONS, VERBALIZED UNDERSTANDING, INFORMED PATIENT TO CONTINUE TRAMADOL AT HOME FOR PAIN, AND TO F/U WITH PCP AND GI DOCTORS. PATIENT DENIES PAIN OR DISCOMFORT, SKIN ASSESSMENT COMPLETED, PHOTOS TAKEN AND PLACED IN CHART, MEDICATION FROM PHARMACY GIVEN BACK TO THE PATIENT, SIGNED ALL DISCHARGE PAPERWORKS, REMOVE PIV AND SECURED WITH GAUZE AND TAPE, PATIENT LEFT THE FACILITY ACCOMPANIED BY A FRIEND VIA PRIVATE CARE, IN STABLE CONDITION.
[2017-02-17] MEDS ORDERED: POTASSIUM CHLORIDE 20 MEQ TAB.PRT.SR PO SCH (12:00)
== END 2017-02-17 11:15 | disposition home or self-care (01) ==
LOC: ER 19:44 → MED 21:52
PROVIDERS: ADMIT Contractor; ATTEND Contractor
PROC: 0FC98ZZ Extirpation of Matter from Common Bile Duct, Via Natural or Artificial Opening Endoscopic (ICD-10-PCS; principal; 2017-02-15 13:00)
DX: K80.50 Calculus of bile duct without cholangitis or cholecystitis without obstruction (principal); K85.10 Biliary acute pancreatitis without necrosis or infection; E88.09 Other disorders of plasma-protein metabolism, not elsewhere classified; E83.42 Hypomagnesemia; J98.11 Atelectasis; G89.29 Other chronic pain; N40.0 Benign prostatic hyperplasia without lower urinary tract symptoms; D72.829 Elevated white blood cell count, unspecified; Z87.891 Personal history of nicotine dependence; Z90.49 Acquired absence of other specified parts of digestive tract; R74.0 Nonspecific elevation of levels of transaminase and lactic acid dehydrogenase [LDH]
CPT/HCPCS: 36415; 71010-TC; 74000-TC; 80048-TC; 80053-TC; 80061-TC; 80076-TC; 82150-TC; 83690-TC; 83735-TC; 84100-TC; 84153-TC; 84154-TC; 84443-TC; 84484-TC; 85025-TC; 85730-TC; 94799-TC; A4216; A4606; C9113; J0330; J1170; J2185; J2250; J2270; J2405; J3010; J3475; J7030; J7042; Q9967; Z7610

== ENCOUNTER 2019-11-05 10:05 | Emergency (ER) | payer OTHER ==
[~2019-11-05] VITALS: Ht 165.1 cm; Wt 74.8 kg
[~2019-11-05 10:05] MED LIST: TRAM50TA2 PO
--- NOTE | 2019-11-05 10:15 | NUR ---
EPIGASTRIC PAIN X 8 DAYS, DENIES N/V/D. PATIENT A/OX4, BREATHING EVEN AND UNLABORED, NOS OB NOTED, NEEDS ATTENDED. KEPT COMFORTABLE.
[2019-11-05 10:37] LABS: BASOPHILS % (AUTO) 0.6 % (0.0-2.0); EOSINOPHILS % (AUTO) 3.1 % (0.0-6.0); HEMATOCRIT 41 % (39-51); HEMOGLOBIN 13.8 g/dL (13.5-17.5); LYMPHOCYTES # (AUTO) 1.8 /CMM (0.8-4.8); MEAN CORPUSCULAR HGB CONC 34 g/dl (31.0-36.0); MEAN CORPUSCULAR VOLUME 93 fL (80-96); MONOCYTES # (AUTO) 0.5 /CMM (0.1-1.30); MONOCYTES % (AUTO) 8.4 % (2.0-12.0); NEUTROPHILS # (AUTO) 3.5 /CMM (1.8-8.9); NEUTROPHILS % (AUTO) 57.9 % (43.0-81.0); PLATELET COUNT (AUTO) 241 /CMM (150-450); RED BLOOD CELL COUNT(AUTO) 4.42 MIL/uL (4.5-6.0); WHITE BLOOD COUNT (AUTO) 6.1 K/uL (4.3-11.0)
[2019-11-05 10:44] LABS: CALCIUM, SERUM 8.8 mg/dL (8.5-10.1); CREATININE 1.1 mg/dL (0.6-1.3); POTASSIUM 3.6 mmol/L (3.5-5.1)
[2019-11-05] MEDS ORDERED: MAG HYDROX/AL HYDROX/SIMETH 30 ML UDC ONE (10:45)
[2019-11-05] MEDS ORDERED: LIDOCAINE VISCOUS 2% UD 15 ML UDC ONE (10:45)
[2019-11-05] MEDS ORDERED: FAMOTIDINE/PF INJ 20 MG/2 ML VIAL IV ONE (10:45)
[2019-11-05 10:50] LABS: ALBUMIN 3.4 g/dL (3.4-5.0); BILIRUBIN,DIRECT 0.1 mg/dL (0.0-0.2); BILIRUBIN,TOTAL 0.3 mg/dL (0.2-1.0); TOTAL PROTEIN, SERUM 7.4 g/dL (6.4-8.2)
[2019-11-05] MEDS: MAG HYDROX/AL HYDROX/SIMETH 30 ML UDC PO ONE (10:53)
[2019-11-05] MEDS: IV NS 0.9% 1,000 ML BAG IV ONE (10:53)
[2019-11-05] MEDS: LIDOCAINE VISCOUS 2% UD 15 ML UDC MM ONE (10:53)
[2019-11-05] MEDS: FAMOTIDINE/PF INJ 20 MG/2 ML VIAL IV ONE (10:53)
[2019-11-05 11:12] LABS: APPEARANCE,URINE Clear (CLEAR); BILIRUBIN,URINE Negative (NEGATIVE); BLOOD, URINE Negative Ery/uL (NEGATIVE); COLOR,URINE Yellow (YELLOW); KETONES,URINE Negative (NEGATIVE); LEUKOCYTE ESTERASE ,URINE Negative (NEGATIVE); NITRITE, URINE Negative (NEGATIVE); PROTEIN,URINE Negative (NEGATIVE); UGLUCOSE Negative (NEGATIVE); UROBILINOGEN,URINE 0.2 EU/dL (0.2)
--- NOTE | 2019-11-05 11:52 | NUR ---
DENIES PAIN AT THIS TIME. IV removed. Catheter intact and site benign. Pressure and 4x4 applied to site. No bleeding noted.Patient discharged to home in stable condition. Written and verbal after care instructions given. Patient verbalizes understanding of instruction.
[2019-11-05 11:53] VITALS: BP 139/75
== END 2019-11-05 11:54 | disposition home or self-care (01) ==
LOC: ER 10:06
DX: R10.13 Epigastric pain (principal); E11.9 Type 2 diabetes mellitus without complications; G89.29 Other chronic pain; Z90.49 Acquired absence of other specified parts of digestive tract; Z60.2 Problems related to living alone; Z79.899 Other long term (current) drug therapy
CPT/HCPCS: 36415; 80048; 80076; 81001; 83690; 85025; 96374; 99283; J3490; J7030; 81000-TC